=== PATIENT | female | born 1965 | race Caucasian/White ===

== ENCOUNTER 2020-08-18 12:30 | Outpatient (CLI) | payer OTHER ==
[~2020-08-18 12:30] MED LIST: KETO10TA2 PO; SEPTRA DS TABLE1 TAB PO; URETRON DS1 TAB PO
== END 2020-08-18 12:45 | disposition home or self-care (01) ==
LOC: RAD 12:30
PROVIDERS: ATTEND Obstetrics & Gynecology
DX: R92.0 Mammographic microcalcification found on diagnostic imaging of breast (principal); Z12.31 Encounter for screening mammogram for malignant neoplasm of breast; N60.11 Diffuse cystic mastopathy of right breast; N60.12 Diffuse cystic mastopathy of left breast; I10 Essential (primary) hypertension